=== PATIENT | female | born 1955 | race Caucasian/White ===

== ENCOUNTER 2016-08-18 22:25 | Emergency (ER) | payer OTHER ==
--- NOTE | 2016-08-18 23:28 | CT ---
CT BRAIN WITHOUT CONTRAST: DATE: 08/18/16. FINDINGS: A noncontrast CT was done following trauma. No intracranial bleeding or extraaxial hematoma was see n. Ventricles are normal in size with no shift. There is no sign of mass, edema, or stroke. The c alvarium appears intact. The sphenoid sinus and mastoid air cells are clear. IMPRESSION: No acute intracranial finding. POS: HOME
[2016-08-18] MEDS ORDERED: Adacel (T-DAP) 0.5 ML VIAL ONE (23:41)
--- NOTE | 2016-08-19 00:12 | ERRECORD ---
[facility] EMERGENCY RECORD HPI LACERATION (23:47 [facility]) CHIEF COMPLAINT: Patient presents for evaluation of laceration to scalp, on the right, 4.1-8.0cm in length, through subcutaneous fascia. HISTORIAN: History provided by patient, 60F presents with a head laceration that occurred after she fell down three stairs. States she slipped while carrying water and hit her head on the stairs. Denies LOC, denies vision changes, denies neck pain or other injury. MECHANISM OF INJURY: Known mechanism, Mechanism of injury fall, from standing, down 3 stairs. LOCATION: Symptoms are localized. QUALITY: Laceration stellate. TIME COURSE: Sudden onset of symptoms, Symptoms are improving. ASSOCIATED WITH: No associated symptoms. EXACERBATED BY: Patient's condition exacerbated by nothing. RELIEVED BY: Patient's condition relieved by nothing because patient has not tried anything for relief. TETANUS: Tetanus status not up to date, tetanus immunization ordered. ROS (23:49 [facility]) CONSTITUTIONAL: Negative constitutional review of systems, Historian denies chills, denies fever. EYES: Negative eye review of systems, Historian denies eye pain, denies vision changes. ENT: Negative ears, nose, throat review of systems, Historian denies rhinorrhea, denies sore throat, denies voice changes. CARDIOVASCULAR: Negative cardiovascular review of systems, Historian denies chest pain, denies palpitations. RESPIRATORY: Negative respiratory review of systems, Historian denies cough, denies shortness of breath. GI: Negative gastrointestinal review of systems, Historian denies abdominal pain, denies constipation, denies diarrhea, denies nausea, denies vomiting. GENITOURINARY FEMALE: Negative genitourinary review of systems, Historian denies dysuria, denies frequency. MUSCULOSKELETAL: Negative musculoskeletal review of systems, Historian denies back pain, denies fall, denies injury. SKIN: stellate laceration over occipital scalp. NEUROLOGIC: Negative neurologic review of systems, Historian denies headache, denies mental status changes, denies paralysis, denies paresthesias, denies sensory changes. HEMO/LYMPHATIC: Normal hematologic/lymphatic system review, Historian denies abnormal blood clotting. ALLERGIC/IMMUNOLOGIC: Normal allergy/immunologic system review, Historian denies frequent infections. PAST MEDICAL HISTORY (23:03 [facility]) MEDICAL HISTORY: No past medical history, Notes: IMMUNIZATIONS ARE NOT UP TO DATE., Flu vaccine not up &a-1R&a+25V*p+0X*e1098P*c202B*c15G*c2P*p-0X&a-25V&a+1R Name: Renee Buckner : 1955 F60 MedRec: [id number] AcctNum: [id number] Prepared: ThuAug 19, 2016 00:00 by Interface Page 1 of 4 pMD [facility] EMERGENCY RECORD to date, Tetanus not up to date, Pneumococcal vaccine not up to date. FEMALE SURGICAL HISTORY: Surgical history of tubal ligation. PSYCHIATRIC HISTORY: Notes: PT DENIES. SOCIAL HISTORY: Patient denies alcohol use, Patient denies drug use, Patient has no smoking history. FAMILY HISTORY: Family istory is not significant. KNOWN ALLERGIES Demerol (Unconfirmed) CURRENT MEDICATIONS (23:09 [facility]) None VITAL SIGNS VITAL SIGNS: BP: 175/102, Pulse: 102 (Regular), Resp: 19 (Non-Labored), Temp: 98.2 (Oral), Pain: 0, O2 sat: 99 on Room Air, Time: 08/18/2016 22:36. (22:36 [facility]) BP: 150/90, Pulse: 90, Resp: 17, Temp: 97.6, Pain: 0, O2 sat: 96 on RA, Time: 08/18/2016 23:50. (23:50 [facility]) PHYSICAL EXAM (23:49 [facility]) CONSTITUTIONAL: Vital signs reviewed, Patient afebrile, Pulse normal, Blood pressure normal, Respiratory rate normal, Patient appears non toxic, Patient appears pain free, Patient alert and oriented to person, place and time. HEAD: Head exam included findings of, normocephalic, stellate lesion posterior scalp, inverted Y shape, through subcutaneous tissue but not through galea. Well approximated. no bony deformities. EYES: Eye exam normal, Eye exam included findings of eyelids normal to inspection, Pupils equally round and reactive to light, Extraocular muscles intact, no nystagmus. ENT: ENT exam normal, Ear exam normal, external ear normal, tympanic membranes normal, no bleeding, Pharynx exam normal, Uvula exam normal, Tonsil exam normal, Mouth exam normal, mucous membranes moist, teeth normal. NECK: Neck exam normal, Neck exam included findings of normal range of motion, Trachea midline, no meningeal signs, no cervical adenopathy, no tenderness. RESPIRATORY CHEST: Respiratory and chest exam normal, Respiratory exam included findings of no respiratory distress, Breath sounds clear. CARDIOVASCULAR: Cardiovascular assessment normal, Cardiovascular exam included findings of heart rate regular rate and rhythm, Heart sounds normal. ABDOMEN FEMALE: Abdominal exam included findings of abdomen nontender, Bowel sounds normal, no distension, no mass, no pulsatile masses, no peritoneal signs, no rigidity, no guarding, no rebound, &a-1R&a+25V*p+0X*e4365G*c202B*c15G*c2P*p-0X&a-25V&a+1R Name: Renee Buckner : 1955 F60 MedRec: [id number] AcctNum: [id number] Prepared: Alan Aug 19, 2016 00:00 by Interface Page 2 of 4 pMD [facility] RECORD Rovsing's sign absent. BACK: Back exam normal, Back exam included findings of normal inspection, range of motion normal, no tenderness. UPPER EXTREMITY: Upper extremity exam normal, Upper extremity exam included findings of inspection normal, Range of motion normal, Motor strength normal, Sensation intact, Radial pulse normal. LOWER EXTREMITY: Lower extremity exam normal, Lower extremity exam included findings of inspection normal, Range of motion normal, Motor strength normal, Sensation intact, Posterior tibial pulse normal, Pedal pulse normal. NEURO: Neuro exam normal, Neuro exam findings include patient oriented to person, place and time, Speech normal, Gait normal, Cranial nerves intact, no focal motor deficits, no focal sensory deficits. SKIN: Skin exam normal, Skin exam included findings of skin warm, dry, and normal in color, no rash. PSYCHIATRIC: Psychiatric exam normal, Normal affect. RADIOLOGYINTERPRETATION (23:51 [facility]) HEAD: Head CT negative, without contrast. MEDICATION ADMINISTRATION SUMMARY Drug Name: Adacel(Tdap Adolesn/Adult)(PF), Dose Ordered: 0.5 mL, Route: Intramuscular, Status: Given, Time: 23:30 08/18/2016, Detailed record available in Medication Service section. DOCTOR NOTES (23:53 [facility]) TEXT: Patient presented after a mechanical fall without LOC. Normal CT findings. Laceration repair tolerated without difficulty, tetanus uptodate. PATIENT STATUS: Patient has improved since arrival to emergency department. PATIENT PLAN: The patient will be discharged, The patient will follow up with primary care physician. PROBLEM LIST No recorded problems DIAGNOSIS (23:29 [facility]) FINAL: PRIMARY: head laceration. PRESCRIPTION No recorded prescriptions DISPOSITION PATIENT: Disposition Type: Discharge, Disposition: *Discharge Home. (23:29 [facility]) Patient left the department. (23:57 [facility]) Metcalf: &a-1R&a+25V*p+0X*g6792K*c202B*c15G*c2P*p-0X&a-25V&a+1R Name: Renee Buckner DOB: 1955 F60 MedRec: [id number] AcctNum: [id number] Prepared: ThuAug 19, 2016 00:00 by Interface Page 3 of 4 pMD [facility] RECORD GUERDAB=KRISTINA Mckeon, Shelia ENCINAS=MD Lisa, [employer] &a-1R&a+25V*p+0X*o7014C*c202B*c15G*c2P*p-0X&a-25V&a+1R Name: Renee Buckner DOB: 1955 F60 MedRec: [id number] AcctNum: [id number] Prepared: ThuAug 19, 2016 00:00 by Interface Page 4 of 4 pMD MTDD
--- NOTE | 2016-08-19 00:14 | PICIS ---
[facility] EMERGENCY RECORD TRIAGE (ThuAug 18, 2016 22:38 [facility]) TRIAGE NOTES: FELL DOWN 4 STAIRS AT 1900 RESULTING IN LACERATION TO OCCIPTAL SCALP. PT DENIES PAIN, DENIES ANY OTHER INJURY. (ThuAug 18, 2016 22:38 [facility]) PATIENT: NAME: Renee Buckner, AGE: 60, GENDER: female, : Thu1955, TIME OF GREET: ThuAug 18, 2016 22:25, PREFERRED LANGUAGE: Ugandan, ETHNICITY: Not or , ECODE BILLING MAP: [facility], SSN: [id number], Zip Code: [address], KG WEIGHT: 81.65 (est.), , , PERSON ID: [id number], PCP: DO LOCKETT KRISTEL. (ThuAug 18, 2016 22:38 [facility]) PHONE: . (23:01) COMPLAINT: Head or Face Laceration. (ThuAug 18, 2016 22:38 [facility]) ADMISSION: URGENCY: 4 Non Urgent, ADMISSION SOURCE: Home, TRANSPORT: CAR, BED: ER -02. (ThuAug 18, 2016 22:38 [facility]) ASSESSMENT: Assessment: LACERATION NOTED TO OCCIPITUS WITH BLEEDING CONTROLLED. ABRASION NOTED TO RT ELBOW WITH SLIGHT SWELLING AT SITE NOTED. ROM WNL TO ALL EXTREMETIES NOTED. CAP REFILL <2SEC TO ALL EXTREMETIES NOTED. PT A/OX4, GCS 4,5,6 (15) AMBULATES WITH STEADY GAIT. SPEECH CLEAR, COHERENT. MAGGI PUPILS 3 BILAT. PT DENIES PAIN. NO DISTRESS NOTED., Symptoms began 08/18/2016 1900. (23:03 [facility]) PAIN: No complaint of pain. (23:03 [facility]) IMMUNIZATIONS: Flu vaccine not up to date, Tetanus not up to date, Pneumococcal vaccine not up to date. (23:03 [facility]) SIRS SCORING: Heart Rate 55-109 (0), Temp range 96.8-101.1 (0), respiratory rate 12-24 (0), Mental Status altered: no (0), Infection or Suspected Infection: No. (23:03 [facility]) TRIAGE SCREENING: Patient denies suicidal ideation, Patient denies presence of domestic violence. (23:03 [facility]) PROVIDERS: TRIAGE NURSE: Shelia Mckeon RN. (ThuAug 18, 2016 22:38 [facility]) VITAL SIGNS: BP 175/102, Pulse 102, (Regular), Resp 19, (Non-Labored), Temp 98.2, (Oral), Pain 0, O2 Sat 99, on Room Air, Time 08/18/2016 22:36. (22:36 [facility]) PREVIOUS VISIT ALLERGIES: Demerol Tab. (ThuAug 18, 2016 22:38 [facility]) Demerol Tab. (23:03 [facility]) KNOWN ALLERGIES Demerol (Unconfirmed) CURRENT MEDICATIONS (: [facility]) None VITAL SIGNS VITAL SIGNS: BP: 175/102, Pulse: 102 (Regular), Resp: 19 (Non-Labored), Temp: 98.2 (Oral), Pain: 0, O2 sat: 99 on Room Air, Time: 08/18/2016 22:36. (22:36 [facility]) &a-1R&a+25V*p+0X*t3516U*c202B*c15G*c2P*p-0X&a-25V&a+1R Name: Renee Buckner : 1955 F60 MedRec: [id number] AcctNum: [id number] Prepared: Alan Aug 19, 2016 00:06 by Interface Page 1 of 7 pMD [facility] EMERGENCY RECORD BP: 150/90, Pulse: 90, Resp: 17, Temp: 97.6, Pain: 0, O2 sat: 96 on RA, Time: 08/18/2016 23:50. (23:50 [facility]) NURSING ASSESSMENT: NEURO (22:38 [facility]) GCS: (6) Obeying command:, (5) Orientated:, (4) Spontaneous eye opening., Result: 15. CONSTITUTIONAL: Complex assessment performed, Patient arrives ambulatory, Gait steady, History obtained from patient, Patient appears comfortable, Patient cooperative, Patient alert, Oriented to person, place and time, Skin warm, Skin dry, Skin normal in color, Mucous membranes pink, Mucous membranes moist, Patient is well-groomed, Patient complains of FALL WITH LACERATION. PAIN: DENIES PAIN. NEURO: Neuro assessment findings include onset of symptoms: , Pupils equally round and reactive to light, Left pupil 3 mm in size, Right pupil 3 mm in size, Able to close eyes, Face symmetrical, Speech normal, GCS:, Eye opening: (4) - Spontaneous, Verbal: (5) - Oriented/conversive, Motor: (6) - Obeys commands/Spontaneous, GCS Total: 15, Hand grasps equal, Upper extremity strength strong, Lower extremity strength strong, Foot press equal. ENT: Ear assessment findings include ear normal to inspection, Mouth and throat assessment findings include mouth inspection normal. SAFETY: Side rails up, Cart/Stretcher in lowest position, Family at bedside, Call light within reach, Hospital ID band on. NURSING ASSESSMENT: SKIN (22:38 [facility]) CONSTITUTIONAL: Complex assessment performed, Patient arrives ambulatory, Gait steady, History obtained from patient, Patient appears comfortable, Patient cooperative, Patient alert, Oriented to person, place and time, Skin warm, Skin dry, Skin normal in color, Mucous membranes pink, Mucous membranes moist, Patient is well-groomed, Patient complains of LACERATION S/P FALL. PAIN: DENIED PAIN. SKIN: Skin assessment findings include skin warm, Skin dry, Skin normal in color, Inspection findings include abrasion, to RT ELBOW, 5CM L X 3CM W, Inspection findings include laceration, to OCCIPITUS, length (cm) 4, bleeding controlled, 1CM W X1CM D. SAFETY: Side rails up, Cart/Stretcher in lowest position, Family at bedside, Call light within reach, Hospital ID band on. NURSING PROCEDURE: DISCHARGE NOTE (23:50 [facility]) DISCHARGE: Patient discharged to home, ambulating without assistance, family driving, accompanied by //partner, Patient requested and was provided an electronic copy of Discharge Instructions, Discharge instructions given to patient, Simple or moderate discharge teaching performed, by KRISTINA MARTI, Above person(s) verbalized understanding of discharge instructions and follow-up care, Patient instructed not to drive home. &a-1R&a+25V*p+0X*v5109P*c202B*c15G*c2P*p-0X&a-25V&a+1R Name: Dudley Renee Charles : 1955 F60 MedRec: [id number] AcctNum: [id number] Prepared: Alan Aug 19, 2016 00:06 by Interface Page 2 of 7 pMD [facility] EMERGENCY RECORD BELONGINGS: Belongings and valuables with patient at time of discharge include:, Belongings remain with patient. SAFETY: Side rails up, Cart/Stretcher in lowest position, Family at bedside, Call light within reach, Hospital ID band on. VITAL SIGNS: BP: 150, / 90, Pulse: 90, Resp: 17, Temp: 97.6, Pain: 0, O2 sat: 96, on: RA. ORDER DETAILS Order Name: CT Brain WO Con, Status: Active, Time: 22:46 08/18/2016, User: [facility], - Ordered for: MD Gonzalez Jason, - Entered by: MD Gonzalez Jason - ThuAug 18, 2016 22:46, - Quantity: 1. MEDICATION ADMINISTRATION SUMMARY Drug Name: Adacel(Tdap Adolesn/Adult)(PF), Dose Ordered: 0.5 mL, Route: Intramuscular, Status: Given, Time: 23:30 08/18/2016, Detailed record available in Medication Service section. MEDICATION SERVICE (23:30 [facility]) Adacel(Tdap Adolesn/Adult)(PF): Order: Adacel(Tdap Adolesn/Adult)(PF) (diphth,pertuss(acell),tet vac/preservative free) - Dose: 0.5 mL : Intramuscular Ordered by: Taqueria Gonzalez MD Entered by: Taqueria Gonzalez MD ThuAug 18, 2016 22:46 , Acknowledged by: Shelia Mckeon RN ThuAug 18, 2016 23:03 Documented as given by: Shelia Mckeon RN ThuAug 18, 2016 23:30 Patient, Medication, Dose, Route and Time verified prior to administration. IM immunization, Amount given: 0.5ML, Medication administered to right deltoid, Vaccination information sheet given to patient, date of publication: 10/03/2014, name of publication: VIS TDAP, vessel master: ADACEL, lot number: [id number], expiration: 07/03/2018, Correct patient, time, route, dose and medication confirmed prior to administration, Patient advised of actions and side-effects prior to administration, Allergies confirmed and medications reviewed prior to administration, Patient in position of comfort, Side rails up, Cart in lowest position, Family at bedside, Call light in reach. HPI LACERATION (23:47 [facility]) CHIEF COMPLAINT: Patient presents for evaluation of laceration to scalp, on the right, 4.1-8.0cm in length, through subcutaneous fascia. HISTORIAN: History provided by patient, 60F presents with a head laceration that occurred after she fell down three stairs. States she slipped while carrying water and hit her head on the stairs. Denies LOC, denies vision changes, denies neck pain or other injury. MECHANISM OF INJURY: Known mechanism, Mechanism of &a-1R&a+25V*p+0X*d1615N*c202B*c15G*c2P*p-0X&a-25V&a+1R Name: Renee Buckner : 1955 F60 MedRec: [id number] AcctNum: [id number] Prepared: Alan Aug 19, 2016 00:06 by Interface Page 3 of 7 pMD [facility] EMERGENCY RECORD injury fall, from standing, down 3 stairs. LOCATION: Symptoms are localized. QUALITY: Laceration stellate. TIME COURSE: Sudden onset of symptoms, Symptoms are improving. ASSOCIATED WITH: No associated symptoms. EXACERBATED BY: Patient's condition exacerbated by nothing. RELIEVED BY: Patient's condition relieved by nothing because patient has not tried anything for relief. TETANUS: Tetanus status not up to date, tetanus immunization ordered. ROS (23:49 [facility]) CONSTITUTIONAL: Negative constitutional review of systems, Historian denies chills, denies fever. EYES: Negative eye review of systems, Historian denies eye pain, denies vision changes. ENT: Negative ears, nose, throat review of systems, Historian denies rhinorrhea, denies sore throat, denies voice changes. CARDIOVASCULAR: Negative cardiovascular review of systems, Historian denies chest pain, denies palpitations. RESPIRATORY: Negative respiratory review of systems, Historian denies cough, denies shortness of breath. GI: Negative gastrointestinal review of systems, Historian denies abdominal pain, denies constipation, denies diarrhea, denies nausea, denies vomiting. GENITOURINARY FEMALE: Negative genitourinary review of systems, Historian denies dysuria, denies frequency. MUSCULOSKELETAL: Negative musculoskeletal review of systems, Historian denies back pain, denies fall, denies injury. SKIN: stellate laceration over occipital scalp. NEUROLOGIC: Negative neurologic review of systems, Historian denies headache, denies mental status changes, denies paralysis, denies paresthesias, denies sensory changes. HEMO/LYMPHATIC: Normal hematologic/lymphatic system review, Historian denies abnormal blood clotting. ALLERGIC/IMMUNOLOGIC: Normal allergy/immunologic system review, Historian denies frequent infections. PAST MEDICAL HISTORY (23:03 [facility]) MEDICAL HISTORY: No past medical history, Notes: IMMUNIZATIONS ARE NOT UP TO DATE., Flu vaccine not up to date, Tetanus not up to date, Pneumococcal vaccine not up to date. FEMALE SURGICAL HISTORY: Surgical history of tubal ligation. PSYCHIATRIC HISTORY: Notes: PT DENIES. SOCIAL HISTORY: Patient denies alcohol use, Patient denies drug use, Patient has no smoking history. FAMILY HISTORY: Family istory is not significant. &a-1R&a+25V*p+0X*u1919M*c202B*c15G*c2P*p-0X&a-25V&a+1R Name: Renee Buckner : 1955 F60 MedRec: [id number] AcctNum: [id number] Prepared: Alan Aug 19, 2016 00:06 by Interface Page 4 of 7 pMD [facility] EMERGENCY RECORD PHYSICAL EXAM (23:49 [facility]) CONSTITUTIONAL: Vital signs reviewed, Patient afebrile, Pulse normal, Blood pressure normal, Respiratory rate normal, Patient appears non toxic, Patient appears pain free, Patient alert and oriented to person, place and time. HEAD: Head exam included findings of, normocephalic, stellate lesion posterior scalp, inverted Y shape, through subcutaneous tissue but not through galea. Well approximated. no bony deformities. EYES: Eye exam normal, Eye exam included findings of eyelids normal to inspection, Pupils equally round and reactive to light, Extraocular muscles intact, no nystagmus. ENT: ENT exam normal, Ear exam normal, external ear normal, tympanic membranes normal, no bleeding, Pharynx exam normal, Uvula exam normal, Tonsil exam normal, Mouth exam normal, mucous membranes moist, teeth normal. NECK: Neck exam normal, Neck exam included findings of normal range of motion, Trachea midline, no meningeal signs, no cervical adenopathy, no tenderness. RESPIRATORY CHEST: Respiratory and chest exam normal, Respiratory exam included findings of no respiratory distress, Breath sounds clear. CARDIOVASCULAR: Cardiovascular assessment normal, Cardiovascular exam included findings of heart rate regular rate and rhythm, Heart sounds normal. ABDOMEN FEMALE: Abdominal exam included findings of abdomen nontender, Bowel sounds normal, no distension, no mass, no pulsatile masses, no peritoneal signs, no rigidity, no guarding, no rebound, Rovsing's sign absent. BACK: Back exam normal, Back exam included findings of normal inspection, range of motion normal, no tenderness. UPPER EXTREMITY: Upper extremity exam normal, Upper extremity exam included findings of inspection normal, Range of motion normal, Motor strength normal, Sensation intact, Radial pulse normal. LOWER EXTREMITY: Lower extremity exam normal, Lower extremity exam included findings of inspection normal, Range of motion normal, Motor strength normal, Sensation intact, Posterior tibial pulse normal, Pedal pulse normal. NEURO: Neuro exam normal, Neuro exam findings include patient oriented to person, place and time, Speech normal, Gait normal, Cranial nerves intact, no focal motor deficits, no focal sensory deficits. SKIN: Skin exam normal, Skin exam included findings of skin warm, dry, and normal in color, no rash. PSYCHIATRIC: Psychiatric exam normal, Normal affect. EVENTS TRANSFER: Triage to Emergency Emergency Room -02. (ThuAug 18, 2016 22:38 [facility]) Removed from Emergency Emergency Room -02. (23:57 [facility]) &a-1R&a+25V*p+0X*g6641S*c202B*c15G*c2P*p-0X&a-25V&a+1R Name: Renee Buckner : 1955 F60 MedRec: [id number] AcctNum: [id number] Prepared: ThuAug 19, 2016 00:06 by Interface Page 5 of 7 pMD [facility] EMERGENCY RECORD RADIOLOGYINTERPRETATION (23:51 [facility]) HEAD: Head CT negative, without contrast. DOCTOR NOTES (23:53 [facility]) TEXT: Patient presented after a mechanical fall without LOC. Normal CT findings. Laceration repair tolerated without difficulty, tetanus uptodate. PATIENT STATUS: Patient has improved since arrival to emergency department. PATIENT PLAN: The patient will be discharged, The patient will follow up with primary care physician. LACERATION-SINGLE REPAIR (23:51 [facility]) TIMEOUT: Side and/or site verified. LACERATION REPAIR: Verbal consent obtained, no bony deformity, no tendon involvement, no joint involvement, Wound not near a neurovascular bundle, Local infiltration with, 2% LIDOCAINE with epinephrine, 3mL, Wound irrigated with normal saline, Laceration repair with spike, using 8 spike, to occipital scalp, total length 8.0 cm, Intermediate repair of laceration, to the scalp, two subcutaneous sutures, two subcutaneous vicryl 4-0 sutures, then 8 cutaneous spike. PROBLEM LIST No recorded problems DIAGNOSIS (23:29 [facility]) FINAL: PRIMARY: head laceration. DISPOSITION PATIENT: Disposition Type: Discharge, Disposition: *Discharge Home. (23:29 [facility]) Patient left the department. (23:57 [facility]) INSTRUCTION (23:30 [facility]) DISCHARGE: LACERATION, SCALP. FOLLOWUP: DO LOCKETT KRISTEL, [facility], [address] [place] [id number], [phone]. SPECIAL: Follow up with your primary doctor in 7 days for staple removal. Return to ED or PMD if you develop a fever or worsening pain. PRESCRIPTION No recorded prescriptions IMAGING (ThuAug 19, 2016 00:00 [facility]) *DISCHARGE INSTRUCTIONS RECEIPT: Image captured from scanner. TETANUS CONSENT: Image captured from scanner. *SUPPLY CHARGE SHEET: Image captured from scanner. &a-1R&a+25V*p+0X*y3176Y*c202B*c15G*c2P*p-0X&a-25V&a+1R Name: Renee Buckner : 1955 F60 MedRec: [id number] AcctNum: [id number] Prepared: ThuAug 19, 2016 00:06 by Interface Page 6 of 7 pMD [facility] EMERGENCY RECORD ADMIN (23:54 [facility]) DIGITAL SIGNATURE: MD Gonzalez Jason. Mectalf: [facility]=KRISTINA Mckeon, Shelia [facility]=MD Gonzalez Jason &a-1R&a+25V*p+0X*v7297O*c202B*c15G*c2P*p-0X&a-25V&a+1R Name: Renee Buckner : 1955 F60 MedRec: [id number] AcctNum: [id number] Prepared: Alan Aug 19, 2016 00:06 by Interface Page 7 of 7 pMD MTDD
== END 2016-08-18 23:50 | disposition home or self-care (01) ==
LOC: BURERS 22:25
DX: S01.01XA Laceration without foreign body of scalp, initial encounter (principal); Z98.51 Tubal ligation status; W10.9XXA Fall (on) (from) unspecified stairs and steps, initial encounter
CPT/HCPCS: 12034; 70450; 90471; 90715

== ENCOUNTER 2016-09-01 10:50 | Outpatient (CLI) | payer OTHER ==
[2016-09-01 13:01] LABS: ALT (SGPT) 16 U/L (0-55); AST (SGOT) 18 U/L (5-34); Alkaline Phosphatase 99 U/L (40-150); Anion Gap 18 mmol/L (10-20); BUN (Urea Nitrogen) 13 mg/dL (9.8-20.1); Bilirubin, Total 0.6 mg/dL (0.2-1.2); Calc. Creatinine Clearance 0 mL/min (70-130); Calcium 9.8 mg/dL (7.8-10.44); Carbon Dioxide 26 mmol/L (22-29); Chloride 104 mmol/L (98-107); Estimated GFR-MDRD 70; Globulin 2.4 g/dL (2.4-3.5); LDL Cholesterol, Calculated 141 mg/dL
[2016-09-01 13:39] LABS: #Basophils 0.1 thou/uL (0.0-0.2); #Eosinphils 0.2 thou/uL (0.0-0.7); #Lymphocytes 2.5 thou/uL (1.20-3.40); #Monocytes 0.4 thou/uL (0.11-0.59); #Neutrophils 4.7 thou/uL (1.40-6.50); %Basophils 0.8 % (0.0-1.0); %Monocytes 4.8 % (0.0-10.0); Hematocrit 46.2 % (36.0-47.0); Mean Platelet Volume 5.4 fL (7.4-10.4); Red Blood Cell (RBC) Count 4.88 mill/uL (4.20-5.40); White Blood Cell (WBC) Count 7.8 thou/uL (4.8-10.8)
== END 2016-09-01 10:51 | disposition home or self-care (01) ==
LOC: HPCALD 10:50
PROVIDERS: ATTEND Family Medicine
DX: I10 Essential (primary) hypertension (principal)
CPT/HCPCS: 36415; 80053; 80061; 84443; 85025

== ENCOUNTER 2016-09-12 17:02 | Outpatient (CLI) | payer OTHER, SELFPAY | END 2016-09-12 17:03 | LOC: HPCALD 17:02 | PROVIDERS: ATTEND Family Medicine | DX: Z01.419 Encounter for gynecological examination (general) (routine) without abnormal findings (principal) ==